=== PATIENT | male | born 1985 | race Caucasian/White ===

== ENCOUNTER 2019-04-01 13:41 | Emergency (ER) | payer MEDICAID ==
--- NOTE | 2019-04-01 15:04 | EDM.PDOC ---
ED HPI GENERAL MEDICAL PROBLEM - General Chief Complaint: General Stated Complaint: DIZZINESS LIGHT HEADED Time Seen by Provider: 04/01/19 14:56 Source of Information: Reports: Patient, Family History Limitations: Reports: No Limitations - History of Present Illness INITIAL COMMENTS - FREE TEXT/NARRATIVE: pt arrived stating that he feels like he has vertigo. He had a migraine yesterday. He took topromax and imitrex and had relieve. He got up feeling good today. He went in the shower and he felt like he was going to pass out in the shower. He does once again have a headache and would take the imitrex if he were at home. He has not vomited. Onset: Today, Sudden Duration: Hour(s): Location: Reports: Head Associated Symptoms: Reports: Headaches, Nausea/Vomiting, Weakness - Related Data Allergies Allergy/AdvReac Type Severity Reaction Status Date / Time No Known Allergies Allergy Verified 03/01/14 13:11 Home Meds: Home Meds NK [No Known Home Meds] 03/01/14 [History] Past Medical History Musculoskeletal History: Reports: Arthritis Neurological History: Reports: Migraines - Past Surgical History Musculoskeletal Surgical History: Reports: Arthroscopic Knee Social & Family History - Tobacco Use Smoking Status *Q: Current Every Day Smoker Years of Tobacco use: 20 Packs/Tins Daily: 0.5 - Caffeine Use Caffeine Use: Reports: Coffee, Soda - Recreational Drug Use Recreational Drug Use: No ED ROS GENERAL - Review of Systems Review Of Systems: See Below Constitutional: Reports: Weakness HEENT: Reports: No Symptoms, Vertigo Respiratory: Reports: No Symptoms Cardiovascular: Reports: No Symptoms Endocrine: Reports: No Symptoms GI/Abdominal: Reports: Nausea : Reports: No Symptoms Musculoskeletal: Reports: No Symptoms Skin: Reports: No Symptoms Neurological: Reports: Dizziness, Headache ED EXAM, GENERAL - Physical Exam Exam: See Below Free Text/Narrative:: pt arrived having vertigo and some spots in front of his eyes. He had a headache. He has not had the vertigo in the past. Exam Limited By: No Limitations General Appearance: Alert, Anxious, Moderate Distress, Other (pupils are equal and reactive. ) Ears: Normal TMs Nose: Normal Inspection Throat/Mouth: Normal Inspection Head: Atraumatic Neck: Normal Inspection Respiratory/Chest: No Respiratory Distress Cardiovascular: Regular Rate, Rhythm GI/Abdominal: Soft, Non-Tender (Male) Exam: Deferred Rectal (Males) Exam: Deferred Back Exam: Normal Inspection Extremities: Normal Inspection, Other (normal strength. ) Neurological: Alert, Oriented, Normal Cognition Psychiatric: Anxious Course - Vital Signs Last Recorded V/S: Last Vital Signs Temp 35.7 C 04/01/19 14:43 Pulse 64 04/01/19 14:43 Resp 16 04/01/19 14:43 BP 129/73 04/01/19 14:43 Pulse Ox 96 04/01/19 14:43 Orthostatic Blood Pressure [ 116/79 Standing] Orthostatic Blood Pressure [ 129/82 Sitting] Orthostatic Blood Pressure [ 126/83 Supine] - Orders/Labs/Meds Labs: Laboratory Tests 04/01/19 04/01/19 04/01/19 Range/Units 14:40 14:40 16:54 WBC 10.3 (4.5-11.0) K/uL RBC 5.56 (4.30-5.90) M/uL Hgb 15.5 H (12.0-15.0) g/dL Hct 46.3 (40.0-54.0) % MCV 83 (80-98) fL MCH 28 (27-31) pg MCHC 34 (32-36) % Plt Count 293 (150-400) K/uL Neut % (Auto) 71 H (36-66) % Lymph % (Auto) 21 L (24-44) % [place] % (Auto) 7 H (2-6) % Eos % (Auto) 2 (2-4) % Baso % (Auto) 0 (0-1) % Sodium 140 (140-148) mmol/L Potassium 3.7 (3.6-5.2) mmol/L Chloride 104 (100-108) mmol/L Carbon Dioxide 26 (21-32) mmol/L Anion Gap 9.6 (5.0-14.0) mmol/L BUN 12 (7-18) mg/dL Creatinine 1.1 (0.8-1.3) mg/dL Est Cr Clr Drug Dosing 88.47 mL/min Estimated GFR (MDRD) > 60 (>60) Glucose 89 (74-106) mg/dL Calcium 9.1 D (8.5-10.1) mg/dL Total Bilirubin 0.5 (0.2-1.0) mg/dL AST 15 (15-37) U/L ALT 20 (12-78) U/L Alkaline Phosphatase 77 (46-116) U/L Total Protein 7.0 (6.4-8.2) g/dL Albumin 3.8 (3.4-5.0) g/dL Globulin 3.2 (2.3-3.5) g/dL Albumin/Globulin Ratio 1.2 (1.2-2.2) Urine Color Yellow Urine Appearance Clear Urine pH 7.0 (4.5-8.0) Ur Specific [place] 1.015 (1.008-1.030) Urine Protein Negative (NEGATIVE) mg/dL Urine Glucose (UA) Normal (NEGATIVE) mg/dL Urine Ketones Negative (NEGATIVE) mg/dL Urine Occult Blood Negative (NEGATIVE) Urine Nitrite Negative (NEGAITVE) Urine Bilirubin Small (NEGATIVE) Urine Urobilinogen 1 (NORMAL) mg/dL Ur Leukocyte Esterase Negative (NEGATIVE) Urine RBC 0-5 (0-5) Urine WBC 0-5 (0-5) Ur Epithelial Cells Rare Amorphous Sediment Not seen Urine Bacteria Rare Urine Mucus Not seen Meds: Medications Discontinued Medications Generic Name Dose Route Start Last Admin Trade Name Freq PRN Reason Stop Dose Admin Sodium Chloride 1,000 mls @ 999 mls/hr 04/01/19 15:15 04/01/19 16:38 Normal Saline IV 999 mls/hr ASDIRECTED JOSÉ MIGUEL Administration Meclizine HCl 25 mg 04/01/19 15:07 04/01/19 16:42 Antivert PO 04/01/19 15:08 25 mg ONETIME ONE Administration Ondansetron HCl 4 mg 04/01/19 15:07 04/01/19 16:39 Zofran IVPUSH 04/01/19 15:08 4 mg ONETIME ONE Administration Sumatriptan Succinate 6 mg 04/01/19 16:16 04/01/19 16:25 Imitrex SUBCUT 04/01/19 16:17 6 mg ONETIME ONE Administration - Re-Assessments/Exams Free Text/Narrative Re-Assessment/Exam: 04/01/19 16:47 pt had a cat scan of the head which was normal. He was given zoforan 4 mg iv, antivert 25 mg qid for the next 2 days, He was given imitrex 6mg subq and his head ache is better. He will be given the fluid,. 04/01/19 16:47 Departure - Departure Time of Disposition: 17:45 Disposition: Home, Self-Care 01 Condition: Fair Clinical Impression: Vertigo, Inner ear dysfunction, Migraine - Discharge Information Instructions: Migraine Headache, [id number], Vertigo, [id number] Referrals: Vishnu Lai MD [Primary Care Provider] - Forms: ED Department Discharge Care Plan Goals: continue same meds, antivert 25 qid for vertigo push fluids.
[2019-04-01] MEDS ORDERED: Meclizine 25 MG Tab PO ONE (15:07)
[2019-04-01] MEDS ORDERED: Ondansetron 4 MG/2 ML SDV IVPUSH ONE (15:07)
[2019-04-01] MEDS ORDERED: Sodium Chloride 0.9% 1,000 ML IV SCH (15:15)
--- NOTE | 2019-04-01 15:55 | CRLCT ---
INDICATION: Vertigo and headache. COMPARISON: None available. TECHNIQUE: CT examination of the head was performed with 3 mm thick axial sections without intravenous contrast. Images were obtained from the vertex of the skull through the skull base, and I examined the images with the brain and bone windows. Please note that all CT scans at this facility use dose modulation, iterative reconstruction, and/or weight-based dosing when appropriate to reduce radiation dose to as low as reasonably achievable. FINDINGS: : The brain is normal in appearance for the patient`s age on today`s study, with no sign of mass lesion, mass effect, hemorrhage, or edema. The ventricles and sulci are normal in appearance for the patient`s age. The visualized portions of the orbits are normal in appearance. The visualized portions of the paranasal sinuses and mastoids are clear. The osseous structures are normal in their appearance with no sign of abnormality in the skull base or calvarium. IMPRESSION: Normal noncontrast CT of the head for the patient`s age. Nothing seen to correlate with a history of vertigo or headache. Please note that all CT scans at this facility use dose modulation, iterative reconstruction, and/or weight-based dosing when appropriate to reduce radiation dose to as low as reasonably achievable. Dictated by Esau Gracia MD @ Apr 01 2019 3:52PM Signed by Dr. Esau Gracia @ Apr 01 2019 3:53PM
[2019-04-01] MEDS ORDERED: SUMAtriptan 6 MG/0.5 ML SDV SUBCUT ONE (16:16)
== END 2019-04-01 17:41 | disposition home or self-care (01) ==
LOC: JP.ED 13:41
DX: G43.909 Migraine, unspecified, not intractable, without status migrainosus (principal); H83.2X9 Labyrinthine dysfunction, unspecified ear; M19.90 Unspecified osteoarthritis, unspecified site; F17.210 Nicotine dependence, cigarettes, uncomplicated
CPT/HCPCS: 36415; 70450; 80053; 81001; 85025; 96361; 96372; 96374; 99284; A9270; J2405; J3030; J7030

== ENCOUNTER 2019-08-11 23:12 | Emergency (ER) | payer MEDICAID ==
[2019-08-11] MEDS ORDERED: Ketorolac 60 MG/2 ML SDV IM ONE (23:44)
--- NOTE | 2019-08-11 23:46 | EDM.PDOC ---
ED HPI GENERAL MEDICAL PROBLEM - General Chief Complaint: Lower Extremity Injury/Pain Stated Complaint: HURT HIP Time Seen by Provider: 08/11/19 23:41 Source of Information: Reports: Patient, Family, RN Notes Reviewed History Limitations: Reports: No Limitations - History of Present Illness INITIAL COMMENTS - FREE TEXT/NARRATIVE: 34-year-old gentleman presents emergency department today complaint of right hip pain, he has a history of left hip dislocation he's never had troubles with the right hip but he feels like he might have a partial dislocation because of the pain that is experiencing, was able to ambulate into the emergency department hip Pain Score (Numeric/FACES): 8 - Related Data Allergies Allergy/AdvReac Type Severity Reaction Status Date / Time No Known Allergies Allergy Verified 08/11/19 23:30 Home Meds: Home Meds Cholecalciferol (Vitamin D3) [Vitamin D] 1 tab PO DAILY 08/11/19 [History] Nabumetone [Relafen] 500 mg PO BID 08/11/19 [History] SUMAtriptan succinate [Sumatriptan Succinate] 25 mg PO ASDIRECTED 08/11/19 [ History] Topiramate 100 mg PO BID 08/11/19 [History] tiZANidine [Zanaflex] 4 mg PO BID 08/11/19 [History] Past Medical History Musculoskeletal History: Reports: Arthritis Neurological History: Reports: Migraines - Past Surgical History GI Surgical History: Reports: Cholecystectomy Musculoskeletal Surgical History: Reports: Arthroscopic Knee Social & Family History - Tobacco Use Smoking Status *Q: Current Every Day Smoker Years of Tobacco use: 20 Packs/Tins Daily: 0.5 - Caffeine Use Caffeine Use: Reports: Coffee, Energy Drinks, Soda - Recreational Drug Use Recreational Drug Use: No Review of Systems - Review of Systems Review Of Systems: See Below Musculoskeletal: Reports: Joint Pain (Hip pain) ED EXAM, GENERAL - Physical Exam Exam: See Below Free Text/Narrative:: Examination the right hip he is point tender over the greater trochanter will not tolerate any flexion and extension or rotation hip Exam Limited By: No Limitations General Appearance: Alert, WD/WN, No Apparent Distress Course - Vital Signs Last Recorded V/S: Last Vital Signs Temp 97.8 F 08/11/19 23:28 Pulse 73 08/11/19 23:28 Resp 20 09/29/19 23:28 BP 114/72 08/11/19 23:28 Pulse Ox 95 08/11/19 23:28 - Orders/Labs/Meds Meds: Medications Discontinued Medications Generic Name Dose Route Start Last Admin Trade Name Mesfin PRN Reason Stop Dose Admin Ketorolac Tromethamine 60 mg 08/11/19 23:44 08/11/19 23:55 Toradol IM 08/11/19 23:45 60 mg ONETIME ONE Administration Departure - Departure Time of Disposition: 00:41 Disposition: Home, Self-Care 01 Condition: Fair Clinical Impression: Right hip pain - Discharge Information Referrals: Vishnu Lai MD [Primary Care Provider] - Forms: ED Department Discharge Additional Instructions: Use Tylenol or Motrin as needed for pain control, Please followup with your primary care provider in 3-5 days if not better, please call return to the emergency department with worsening of symptoms. - Assessment/Plan Plan: Assessment Acuity = acute Site and laterality = right hip pain Etiology = unknown etiology Manifestations = none Location of injury = Home Lab values = x-ray shows no acute process Plan He had some relief from the Toradol provided he's can use Tylenol or Motrin as needed for pain control follow-up primary care in 3-5 days for reevaluation This note was dictated using [employer] voice recognition software please call with any questions on syntax or grammar.
--- NOTE | 2019-08-12 00:18 | CRLCR ---
Indication: Hip pain Technique: Right hip 2 views Comparison: None Findings: Bones: Alignment is normal. No fractures or bone lesions. Joint spaces: Joint spaces are preserved. No degenerative changes. Soft tissues: Unremarkable. Impression: Unremarkable right hip. Dictated by Connor Jacome MD @ Aug 12 2019 12:15AM Signed by Dr. Connor Jacome @ Aug 12 2019 12:16AM
== END 2019-08-12 01:16 | disposition home or self-care (01) ==
LOC: JP.ED 23:12
DX: M25.551 Pain in right hip (principal); G43.909 Migraine, unspecified, not intractable, without status migrainosus; F17.210 Nicotine dependence, cigarettes, uncomplicated; Z79.899 Other long term (current) drug therapy
CPT/HCPCS: 73502; 96372; 99283; J1885

== ENCOUNTER 2019-09-10 23:17 | Emergency (ER) | payer MEDICAID ==
--- NOTE | 2019-09-10 23:54 | EDM.PDOC ---
ED HPI GENERAL MEDICAL PROBLEM - General Chief Complaint: Upper Extremity Injury/Pain Stated Complaint: RIGHT THUMB PAIN Time Seen by Provider: 09/10/19 23:40 Source of Information: Reports: Patient, Old Records History Limitations: Reports: No Limitations - History of Present Illness INITIAL COMMENTS - FREE TEXT/NARRATIVE: 34 yo male was picking up his 11 mos child and heard and felt a pop in the dorsum of his R thumb over the MC joint. 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 Onset: Today, Sudden Onset Date: 09/10/19 Onset Time: 21:00 Duration: Minutes:, Constant Location: Reports: Upper Extremity, Right Quality: Reports: Ache Severity: Mild Improves with: Reports: Rest Worsens with: Reports: Movement Context: Reports: Trauma Associated Symptoms: Reports: No Other Symptoms Treatments MOTHER REPAIRER: Reports: Other (see below) (ice) Right Finger-Thumb Pain Score (Numeric/FACES): 4 - Related Data Allergies Allergy/AdvReac Type Severity Reaction Status Date / Time No Known Allergies Allergy Verified 09/10/19 23:34 Home Meds: Home Meds Cholecalciferol (Vitamin D3) [Vitamin D] 1 tab PO DAILY 08/11/19 [History] Nabumetone [Relafen] 500 mg PO BID 08/11/19 [History] SUMAtriptan succinate [Sumatriptan Succinate] 25 mg PO ASDIRECTED 08/11/19 [ History] Topiramate 100 mg PO BID 08/11/19 [History] tiZANidine [Zanaflex] 4 mg PO BID 08/11/19 [History] Past Medical History HEENT History: Reports: Impaired Vision Respiratory History: Reports: Asthma Musculoskeletal History: Reports: Arthritis Neurological History: Reports: Migraines - Past Surgical History GI Surgical History: Reports: Cholecystectomy Musculoskeletal Surgical History: Reports: Arthroscopic Knee Social & Family History - Tobacco Use Smoking Status *Q: Current Every Day Smoker Years of Tobacco use: 17 Packs/Tins Daily: 0.5 - Caffeine Use Caffeine Use: Reports: Coffee, Energy Drinks, Soda - Recreational Drug Use Recreational Drug Use: No Review of Systems - Review of Systems Review Of Systems: ROS reveals no pertinent complaints other than HPI. Constitutional: Reports: No Symptoms Musculoskeletal: Reports: Hand Pain (R thumb) Skin: Reports: No Symptoms Neurological: Reports: No Symptoms ED EXAM, GENERAL - Physical Exam Exam: See Below Exam Limited By: No Limitations General Appearance: Alert, WD/WN, No Apparent Distress Extremities: Normal Inspection, Normal Range of Motion, No Pedal Edema, Other ( collateral ligaments intact. Full ROM. Slightly tender over the dorsum of the R thumb MC jt. ). No: Non-Tender, Pedal Edema, Joint Swelling, Limited Range of Motion, Increased Warmth, Redness Course - Vital Signs Last Recorded V/S: Last Vital Signs Temp 36.6 C 09/10/19 23:40 Pulse 69 09/10/19 23:40 Resp 14 09/10/19 23:40 BP 138/79 09/10/19 23:40 Pulse Ox 96 09/10/19 23:40 - Orders/Labs/Meds Orders: Active Orders 24 hr Category Date Time Status Fingers Thumb Lt FA [CR] Stat Exams 09/10/19 23:45 Stop Req Departure - Departure Time of Disposition: 23:53 Disposition: Home, Self-Care 01 Condition: Good Clinical Impression: Thumb tenderness - Discharge Information *PRESCRIPTION DRUG MONITORING PROGRAM REVIEWED*: No *COPY OF PRESCRIPTION DRUG MONITORING REPORT IN PATIENT ERNA: No Referrals: Vishnu Lai MD [Primary Care Provider] - Additional Instructions: Take ibuprofen 600 mg every 6 hrs with food. Rest the R thumb for the next several days. If not better by Monday or Monday check with your primary care provider. Consider icing area for 15 minutes 2-3 times per day. - My Orders Last 24 Hours: My Active Orders 09/10/19 23:45 Fingers Thumb Lt FA [CR] Stat - Assessment/Plan Last 24 Hours: My Active Orders 09/10/19 23:45 Fingers Thumb Lt FA [CR] Stat
== END 2019-09-11 00:06 | disposition home or self-care (01) ==
LOC: JP.ED 23:17
DX: M79.644 Pain in right finger(s) (principal); J45.909 Unspecified asthma, uncomplicated; F17.210 Nicotine dependence, cigarettes, uncomplicated; X50.9XXA Other and unspecified overexertion or strenuous movements or postures, initial encounter
CPT/HCPCS: 99283

== ENCOUNTER 2019-09-20 18:01 | Emergency (ER) | payer MEDICAID ==
[2019-09-20] MEDS ORDERED: Ketorolac 30 MG/ML SDV IVPUSH ONE (19:02)
[2019-09-20] MEDS ORDERED: Sodium Chloride 0.9% 10 ML Syringe FLUSH PRN (19:03)
--- NOTE | 2019-09-20 19:11 | EDM.PDOC ---
ED HPI GENERAL MEDICAL PROBLEM - General Stated Complaint: PAIN IN CHEST Time Seen by Provider: 09/20/19 18:51 Source of Information: Reports: Patient History Limitations: Reports: No Limitations - History of Present Illness INITIAL COMMENTS - FREE TEXT/NARRATIVE: Sudden onset RUQ 20 minutes prior to arrival. Pain was quite severe, 7/10, when it began with some nausea but no vomiting. He underwent a cholecystectomy 18 months ago because of similar pain such as this as well as postprandial diarrhea /fatty food intolerance. He is continued to have some postprandial related soft stools but nothing like the pain he experienced today. He didn't take anything for it. He actually drove himself here because his roommate's unable to drive because of medical procedure earlier today. He has nausea but no vomiting. His position of comfort is lying supine with his right arm up over his head. If his arm is at his side or if he is standing and walking, pain goes up to 8-9/10. Onset: Today, Sudden Location: Reports: Abdomen Quality: Reports: Burning, Dull Severity: Moderate Improves with: Reports: None Worsens with: Reports: None Associated Symptoms: Reports: No Other Symptoms - Related Data Allergies Allergy/AdvReac Type Severity Reaction Status Date / Time No Known Allergies Allergy Verified 09/20/19 19:14 Home Meds: Home Meds Cholecalciferol (Vitamin D3) [Vitamin D] 1 tab PO DAILY 08/11/19 [History] Nabumetone [Relafen] 500 mg PO BID 08/11/19 [History] SUMAtriptan succinate [Sumatriptan Succinate] 25 mg PO ASDIRECTED 08/11/19 [ History] Topiramate 100 mg PO BID 08/11/19 [History] tiZANidine [Zanaflex] 4 mg PO BID 08/11/19 [History] Albuterol [Ventolin HFA] 1 puff INH Q4H PRN 09/11/19 [History] Past Medical History HEENT History: Reports: Impaired Vision Respiratory History: Reports: Asthma Musculoskeletal History: Reports: Arthritis Neurological History: Reports: Migraines - Past Surgical History GI Surgical History: Reports: Cholecystectomy Musculoskeletal Surgical History: Reports: Arthroscopic Knee Social & Family History - Caffeine Use Caffeine Use: Reports: Coffee, Energy Drinks, Soda ED ROS GENERAL - Review of Systems Review Of Systems: See Below Constitutional: Reports: No Symptoms Respiratory: Reports: No Symptoms Cardiovascular: Reports: No Symptoms GI/Abdominal: Reports: Abdominal Pain, Nausea. Denies: Black Stool, Vomiting : Reports: No Symptoms Musculoskeletal: Reports: No Symptoms ED EXAM, GI/ABD - Physical Exam Exam: See Below Exam Limited By: No Limitations General Appearance: Alert, Moderate Distress Respiratory/Chest: No Respiratory Distress Cardiovascular: Regular Rate, Rhythm GI/Abdominal Exam: Soft, Tender (Tender throughout the right upper quadrant on palpation as well as the right periumbilical region.) Back Exam: Normal Inspection Course - Vital Signs Last Recorded V/S: Last Vital Signs Temp 36.1 C 09/20/19 18:46 Pulse 63 09/20/19 18:46 Resp 18 09/20/19 18:46 BP 116/68 09/20/19 18:46 Pulse Ox 96 09/20/19 18:46 - Orders/Labs/Meds Orders: Active Orders 24 hr Category Date Time Status Saline Lock Insert [OM.PC] Routine Oth 09/20/19 19:03 Ordered Labs: Laboratory Tests 09/20/19 09/20/19 Range/Units 19:18 19:18 WBC 8.1 (4.5-11.0) K/uL RBC 5.18 (4.30-5.90) M/uL Hgb 14.2 (12.0-15.0) g/dL Hct 43.9 (40.0-54.0) % MCV 85 (80-98) fL MCH 27 (27-31) pg MCHC 32 (32-36) % Plt Count 305 (150-400) K/uL Neut % (Auto) 62 (36-66) % Lymph % (Auto) 27 (24-44) % [place] % (Auto) 8 H (2-6) % Eos % (Auto) 3 (2-4) % Baso % (Auto) 0 (0-1) % Sodium 144 (140-148) mmol/L Potassium 3.8 (3.6-5.2) mmol/L Chloride 109 H (100-108) mmol/L Carbon Dioxide 25 (21-32) mmol/L Anion Gap 13.8 (5.0-14.0) mmol/L BUN 17 (7-18) mg/dL Creatinine 1.0 (0.8-1.3) mg/dL Est Cr Clr Drug Dosing 96.40 mL/min Estimated GFR (MDRD) > 60 (>60) Glucose 103 (74-106) mg/dL Calcium 8.6 (8.5-10.1) mg/dL Total Bilirubin 0.2 D (0.2-1.0) mg/dL AST 12 L (15-37) U/L ALT 20 (12-78) U/L Alkaline Phosphatase 72 (46-116) U/L Total Protein 6.6 (6.4-8.2) g/dL Albumin 3.6 (3.4-5.0) g/dL Globulin 3.0 (2.3-3.5) g/dL Albumin/Globulin Ratio 1.2 (1.2-2.2) Lipase 93 (73-393) U/L Meds: Medications Discontinued Medications Generic Name Dose Route Start Last Admin Trade Name Freq PRN Reason Stop Dose Admin Sodium Chloride 1,000 mls @ 500 mls/hr 09/20/19 19:15 09/20/19 19:29 Normal Saline IV 500 mls/hr ASDIRECTED JOSÉ MIGUEL Administration Sodium Chloride 100 mls @ 3 mls/sec 09/20/19 19:30 09/20/19 19:55 Normal Saline IV 3 mls/sec ASDIRECTED JOSÉ MIGUEL Administration Iopamidol 100 ml 09/20/19 19:30 09/20/19 19:55 Isovue-300 (61%) IV 100 ml . DIRECTED JOSÉ MIGUEL Administration Ketorolac Tromethamine 30 mg 09/20/19 19:02 09/20/19 19:29 Toradol IVPUSH 09/20/19 19:03 30 mg ONETIME ONE Administration Sodium Chloride 10 ml 09/20/19 19:03 09/20/19 19:30 Saline Flush FLUSH 10 ml ASDIRECTED PRN Administration Keep Vein Open Sodium Chloride 10 ml 09/20/19 19:27 09/20/19 19:55 Saline Flush FLUSH 09/20/19 19:28 10 ml ONETIME ONE Administration - Re-Assessments/Exams Free Text/Narrative Re-Assessment/Exam: 09/20/19 19:11 Patient will be given Toradol 30 mg IV. Given nature and location of pain, will obtain CT scan. 09/20/19 22:45 I returned later and reviewed test results with the patient. Labs are unremarkable. The Toradol helped his pain somewhat. CT scan results show no evidence of anything alarming. He does have significant amount of stool within his system but in talking with him, he states that he is the usual case. There are no abnormalities identified in his cholecystectomy. I discussed that he may have an element of constipation as well as an element of viral gastroenteritis. Nothing alarming is seen tonight and his vital signs have also been stable. I recommended using usual medication for pain, liquid antacids as needed, returning to ER if feeling worse in anyway. He periodically has done colon cleaned out regimens and if he does not feel any different in the next 12-24 hours, he should consider doing that. Reasons to return to emergency department reviewed. 09/20/19 22:45 Departure - Departure Time of Disposition: 21:29 Disposition: Home, Self-Care 01 Condition: Good Clinical Impression: Abdominal pain, Gastroenteritis - Discharge Information *PRESCRIPTION DRUG MONITORING PROGRAM REVIEWED*: Not Applicable *COPY OF PRESCRIPTION DRUG MONITORING REPORT IN PATIENT ERNA: Not Applicable Instructions: Abdominal Pain, Adult Referrals: Vishnu Lai MD [Primary Care Provider] - Forms: ED Department Discharge Additional Instructions: Avoid dairy products until pain improves. He could try liquid antacid of choice taking 3 or so tablespoons at a time as needed for pain. Depending on stool pattern at home, you may need to do a bowel cleanout at home as discussed. If things are not improving after 24 hours or so or if feeling worse in anyway, return to emergency department. - My Orders Last 24 Hours: My Active Orders 09/20/19 19:03 Saline Lock Insert [OM.PC] Routine - Assessment/Plan Last 24 Hours: My Active Orders 09/20/19 19:03 Saline Lock Insert [OM.PC] Routine
[2019-09-20] MEDS ORDERED: Sodium Chloride 0.9% 1,000 ML IV SCH (19:15)
[2019-09-20] MEDS ORDERED: Sodium Chloride 0.9% 10 ML Syringe FLUSH ONE (19:27)
[2019-09-20] MEDS ORDERED: Iopamidol 612 MG/ML 100 ML Bottle IV SCH (19:30)
[2019-09-20] MEDS ORDERED: Sodium Chloride 0.9% 100 ML IV SCH (19:30)
--- NOTE | 2019-09-20 20:37 | CRLCT ---
INDICATION: Right upper quadrant pain status post cholecystectomy TECHNIQUE: CT abdomen and pelvis acquired with IV contrast. COMPARISON: None FINDINGS: Lower chest: Unremarkable. Liver: Unremarkable. Spleen: Unremarkable. Pancreas: Unremarkable. Gallbladder and bile ducts: Unremarkable. Kidneys: Unremarkable. Adrenal glands: Unremarkable. GI tract: Diffuse colonic fecal retention. Appendix is normal. Vascular structures: Unremarkable. Lymph nodes: Unremarkable. Miscellaneous: Unremarkable. No free air or significant free fluid. Pelvic Organs: Unremarkable. Bones: Unremarkable for age. IMPRESSION: Status post cholecystectomy. Normal appearing common bile duct. No intrahepatic biliary duct dilatation. No abnormality is identified in the gallbladder fossa. Diffuse colonic fecal retention. Dictated by Tee Vega MD @ 09/20/2019 8:35:07 PM Please note that all CT scans at this facility use dose modulation, iterative reconstruction, and/or weight-based dosing when appropriate to reduce radiation dose to as low as reasonably achievable. Dictated by: Tee Vega MD @ 09/20/2019 20:35:16 (Electronically Signed)
== END 2019-09-20 21:40 | disposition home or self-care (01) ==
LOC: JP.ED 18:01
DX: K52.9 Noninfective gastroenteritis and colitis, unspecified (principal); J45.909 Unspecified asthma, uncomplicated
CPT/HCPCS: 36415; 74177; 80053; 83690; 85025; 96361; 96374; 99284; J1885; J7030; Q9967

== ENCOUNTER 2019-12-07 22:37 | Emergency (ER) | payer MEDICAID ==
[2019-12-07] MEDS ORDERED: Ondansetron 4 MG/2 ML SDV IVPUSH ONE (23:00)
[2019-12-07] MEDS ORDERED: Ondansetron 4 MG Tab.DIS PO ONE (23:47)
--- NOTE | 2019-12-07 23:52 | EDM.PDOC ---
ED HPI GENERAL MEDICAL PROBLEM - General Chief Complaint: Neurological Problem Stated Complaint: [facility] Time Seen by Provider: 12/07/19 23:40 Source of Information: Reports: Patient, RN Notes Reviewed History Limitations: Reports: No Limitations - History of Present Illness INITIAL COMMENTS - FREE TEXT/NARRATIVE: 34-year-old gentleman presents emergency department today via EMS services. He admits to consumption of cannabis he states he has not smoked in over 5years immediately after smoking he became very lightheaded he went down to 1 knee the next thing he remembers laying on the floor he remembers being able to see and hear but he felt he could not move. EMS services were called transported to the emergency department for evaluation on arrival he did have one large bout of emesis. At this time he feels he is back to his normal state he does have chronic back pain which is normal for him no nausea at this time he is complaining of dry mouth that chronic lower back pain Pain Score (Numeric/FACES): 2 - Related Data Allergies Allergy/AdvReac Type Severity Reaction Status Date / Time No Known Allergies Allergy Verified 12/07/19 22:39 Home Meds: Home Meds Cholecalciferol (Vitamin D3) [Vitamin D] 1 tab PO DAILY 08/11/19 [History] Nabumetone [Relafen] 500 mg PO BID 08/11/19 [History] SUMAtriptan succinate [Sumatriptan Succinate] 25 mg PO ASDIRECTED PRN 08/11/19 [ History] Topiramate 100 mg PO BID 08/11/19 [History] tiZANidine [Zanaflex] 4 mg PO BID 08/11/19 [History] Albuterol [Ventolin HFA] 1 puff INH Q4H PRN 09/11/19 [History] Past Medical History HEENT History: Reports: Impaired Vision Respiratory History: Reports: Asthma Musculoskeletal History: Reports: Arthritis Neurological History: Reports: Migraines - Infectious Disease History Infectious Disease History: Reports: Chicken Pox - Past Surgical History GI Surgical History: Reports: Cholecystectomy Musculoskeletal Surgical History: Reports: Arthroscopic Knee Social & Family History - Tobacco Use Smoking Status *Q: Current Every Day Smoker Years of Tobacco use: 20 Packs/Tins Daily: 0.5 Second Hand Smoke Exposure: Yes - Caffeine Use Caffeine Use: Reports: Coffee - Recreational Drug Use Recreational Drug Use: Yes Drug Use in Last 12 Months: Yes Recreational Drug Type: Reports: Marijuana/Hashish Recreational Drug Use Frequency: Rarely ED ROS GENERAL - Review of Systems Review Of Systems: See Below Constitutional: Reports: No Symptoms HEENT: Reports: No Symptoms Respiratory: Reports: No Symptoms Cardiovascular: Reports: Syncope GI/Abdominal: Reports: Nausea, Vomiting Musculoskeletal: Reports: No Symptoms ED EXAM, GENERAL - Physical Exam Exam: See Below Exam Limited By: No Limitations General Appearance: Alert, WD/WN, No Apparent Distress Respiratory/Chest: No Respiratory Distress, Lungs Clear, Normal Breath Sounds, No Accessory Muscle Use, Chest Non-Tender Cardiovascular: Regular Rate, Rhythm, No Murmur GI/Abdominal: Soft, Non-Tender Course - Vital Signs Last Recorded V/S: Last Vital Signs Temp 96.4 F 12/07/19 22:49 Pulse 107 H 12/07/19 22:50 Resp 17 12/07/19 22:50 BP 111/56 L 12/07/19 22:50 Pulse Ox 95 12/07/19 22:50 - Orders/Labs/Meds Labs: Laboratory Tests 12/07/19 12/07/19 12/07/19 Range/Units 22:46 22:48 22:48 WBC 16.1 H (4.5-11.0) K/uL RBC 5.37 (4.30-5.90) M/uL Hgb 15.0 (12.0-15.0) g/dL Hct 44.7 (40.0-54.0) % MCV 83 (80-98) fL MCH 28 (27-31) pg MCHC 34 (32-36) % Plt Count 309 (150-400) K/uL Neut % (Auto) 59 (36-66) % Lymph % (Auto) 32 (24-44) % [place] % (Auto) 7 H (2-6) % Eos % (Auto) 2 (2-4) % Baso % (Auto) 0 (0-1) % Sodium 143 (140-148) mmol/L Potassium 2.8 L* (3.6-5.2) mmol/L Chloride 106 (100-108) mmol/L Carbon Dioxide 20 L (21-32) mmol/L Anion Gap 19.8 H (5.0-14.0) mmol/L BUN 22 H (7-18) mg/dL Creatinine 1.3 (0.8-1.3) mg/dL Est Cr Clr Drug Dosing 74.15 mL/min Estimated GFR (MDRD) > 60 (>60) Glucose 135 H (74-106) mg/dL Calcium 8.1 L (8.5-10.1) mg/dL Total Bilirubin 0.5 D (0.2-1.0) mg/dL AST 14 L (15-37) U/L ALT 22 (12-78) U/L Alkaline Phosphatase 64 (46-116) U/L Total Protein 6.9 (6.4-8.2) g/dL Albumin 3.9 (3.4-5.0) g/dL Globulin 3.0 (2.3-3.5) g/dL Albumin/Globulin Ratio 1.3 (1.2-2.2) Urine Color (YELLOW) Urine Appearance (CLEAR) Urine pH (5.0-8.0) Ur Specific [place] (1.008-1.030) Urine Protein (NEGATIVE) mg/dL Urine Glucose (UA) (NEGATIVE) mg/dL Urine Ketones (NEGATIVE) mg/dL Urine Occult Blood (NEGATIVE) Urine Nitrite (NEGATIVE) Urine Bilirubin (NEGATIVE) Urine Urobilinogen (0.2-1.0) EU/dL Ur Leukocyte Esterase (NEGATIVE) Urine RBC (0-5) Urine WBC (0-5) Ur Epithelial Cells Amorphous Sediment Urine Bacteria Urine Mucus Urine Opiates Screen (NEGATIVE) Ur Oxycodone Screen (NEGATIVE) Urine Methadone Screen (NEGATIVE) Ur Propoxyphene Screen (NEGATIVE) Ur Barbiturates Screen (NEGATIVE) Ur Tricyclics Screen (NEGATIVE) Ur Phencyclidine Scrn (NEGATIVE) Ur Amphetamine Screen (NEGATIVE) U Methamphetamines Scrn (NEGATIVE) Urine MDMA Screen (NEGATIVE) U Benzodiazepines Scrn (NEGATIVE) U Cocaine Metab Screen (NEGATIVE) U Marijuana (THC) Screen (NEGATIVE) Ethyl Alcohol 3 mg/dL 12/08/19 12/08/19 Range/Units 02:47 02:47 WBC (4.5-11.0) K/uL RBC (4.30-5.90) M/uL Hgb (12.0-15.0) g/dL Hct (40.0-54.0) % MCV (80-98) fL MCH (27-31) pg MCHC (32-36) % Plt Count (150-400) K/uL Neut % (Auto) (36-66) % Lymph % (Auto) (24-44) % [place] % (Auto) (2-6) % Eos % (Auto) (2-4) % Baso % (Auto) (0-1) % Sodium (140-148) mmol/L Potassium (3.6-5.2) mmol/L Chloride (100-108) mmol/L Carbon Dioxide (21-32) mmol/L Anion Gap (5.0-14.0) mmol/L BUN (7-18) mg/dL Creatinine (0.8-1.3) mg/dL Est Cr Clr Drug Dosing mL/min Estimated GFR (MDRD) (>60) Glucose (74-106) mg/dL Calcium (8.5-10.1) mg/dL Total Bilirubin (0.2-1.0) mg/dL AST (15-37) U/L ALT (12-78) U/L Alkaline Phosphatase (46-116) U/L Total Protein (6.4-8.2) g/dL Albumin (3.4-5.0) g/dL Globulin (2.3-3.5) g/dL Albumin/Globulin Ratio (1.2-2.2) Urine Color Yellow (YELLOW) Urine Appearance Clear (CLEAR) Urine pH 7.0 (5.0-8.0) Ur Specific [place] 1.020 (1.008-1.030) Urine Protein Negative (NEGATIVE) mg/dL Urine Glucose (UA) Negative (NEGATIVE) mg/dL Urine Ketones 15 H (NEGATIVE) mg/dL Urine Occult Blood Negative (NEGATIVE) Urine Nitrite Negative (NEGATIVE) Urine Bilirubin Negative (NEGATIVE) Urine Urobilinogen 0.2 (0.2-1.0) EU/dL Ur Leukocyte Esterase Negative (NEGATIVE) Urine RBC 0-5 (0-5) Urine WBC 0-5 (0-5) Ur Epithelial Cells Rare Amorphous Sediment Not seen Urine Bacteria Not seen Urine Mucus Moderate Urine Opiates Screen Negative (NEGATIVE) Ur Oxycodone Screen Negative (NEGATIVE) Urine Methadone Screen Negative (NEGATIVE) Ur Propoxyphene Screen Negative (NEGATIVE) Ur Barbiturates Screen Negative (NEGATIVE) Ur Tricyclics Screen Negative (NEGATIVE) Ur Phencyclidine Scrn Negative (NEGATIVE) Ur Amphetamine Screen Negative (NEGATIVE) U Methamphetamines Scrn Negative (NEGATIVE) Urine MDMA Screen Negative (NEGATIVE) U Benzodiazepines Scrn Negative (NEGATIVE) U Cocaine Metab Screen Negative (NEGATIVE) U Marijuana (THC) Screen Presumptive positive H (NEGATIVE) Ethyl Alcohol mg/dL Meds: Medications Discontinued Medications Generic Name Dose Route Start Last Admin Trade Name Mesfin PRN Reason Stop Dose Admin Lactated Ringer's 1,000 mls @ 999 mls/hr 12/07/19 23:54 12/08/19 00:16 Ringers, Lactated IV 12/08/19 00:54 999 mls/hr BOLUS ONE Administration Potassium Chloride 20 meq/ 100 mls @ 50 mls/hr 12/07/19 23:54 12/08/19 00:13 Premix IV 12/08/19 01:53 50 mls/hr ONETIME ONE Administration Potassium Chloride Confirm 12/08/19 00:05 Kcl 20 Meq In Water 100 Ml Administered 12/08/19 00:06 Dose 100 mls @ as directed .ROUTE .STK-MED ONE Lidocaine HCl 2 ml 12/07/19 23:56 12/08/19 00:15 Xylocaine-Mpf 1% INJECT 12/07/19 23:57 2 ml ONETIME ONE Administration Lidocaine HCl Confirm 12/08/19 00:04 Xylocaine-Mpf 1% Administered 12/08/19 00:05 Dose 5 ml .ROUTE .STK-MED ONE Ondansetron HCl 4 mg 12/07/19 23:00 12/07/19 23:11 Zofran IVPUSH 12/07/19 23:01 4 mg ONETIME ONE Administration Ondansetron HCl 4 mg 12/07/19 23:47 12/08/19 00:16 Zofran Odt PO 12/07/19 23:48 4 mg ONETIME ONE Administration Ondansetron HCl Confirm 12/08/19 00:04 Zofran Odt Administered 12/08/19 00:05 Dose 4 mg .ROUTE .STK-MED ONE Potassium Chloride 40 meq 12/07/19 23:54 12/08/19 00:16 Klor-Con M20 PO 12/07/19 23:55 40 meq ONETIME ONE Administration Potassium Chloride Confirm 12/08/19 00:04 Klor-Con M20 Administered 12/08/19 00:05 Dose 40 meq .ROUTE .STK-MED ONE Departure - Departure Time of Disposition: 03:09 Disposition: Home, Self-Care 01 Condition: Fair Clinical Impression: Cannabis intoxication Qualifiers: Complication of substance-induced condition: uncomplicated Qualified Code(s): F12.920 - Cannabis use, unspecified with intoxication, uncomplicated - Discharge Information Instructions: Cannabis Use Disorder Referrals: PCP,None [Primary Care Provider] - Forms: ED Department Discharge Additional Instructions: Refrain from cannabis use, please followup with your primary care provider in 3 -5 days if not better, please call return to the emergency department with worsening of symptoms. Sepsis Event Note - Evaluation Sepsis Screening Result: No Definite Risk - Focused Exam Vital Signs: Vital Signs Temp Pulse Resp BP Pulse Ox 12/07/19 22:50 107 H 17 111/56 L 95 12/07/19 22:49 96.4 F 84 22 H 109/60 96 12/07/19 22:47 96.4 F 84 22 H 109/60 96 Date Exam was Performed: 12/08/19 Time Exam was Performed: 03:08 - Assessment/Plan Plan: Assessment Acuity = acute Site and laterality = cannabis intoxication Etiology = cannabis Manifestations = near syncope with nausea and vomiting Location of injury = Home Lab values = WBC elevated 16.1 consistent with leukocytosis potassium low at 2.8 consistent hypokalemia, urine drug screen positive for cannabis alcohol was negative Plan Good improvement with 1 L fluids potassium was replaced with 20 mEq IV and 40 mEq p.o. however follow-up with his primary care in the next 3 to 5 days for reevaluation refrain from cannabis use This note was dictated using [employer] voice recognition software please call with any questions on syntax or grammar.
[2019-12-07] MEDS ORDERED: Potassium Chloride 20 MEQ in Premix Bag 1 BAG IV ONE (23:54)
[2019-12-07] MEDS ORDERED: Lactated Ringers 1,000 ML IV ONE (23:54)
[2019-12-07] MEDS ORDERED: Potassium Chloride 20 MEQ Tab.ER PO ONE (23:54)
[2019-12-08] MEDS ORDERED: Potassium Chloride 20 MEQ Tab.ER ONE (00:04)
[2019-12-08] MEDS ORDERED: Ondansetron 4 MG Tab.DIS ONE (00:04)
[2019-12-08] MEDS ORDERED: Potassium Chloride 100 ML ONE (00:05)
[2019-12-08] MEDS ORDERED: Ketorolac 30 MG/ML SDV IVPUSH ONE (03:23)
== END 2019-12-08 04:30 | disposition home or self-care (01) ==
LOC: JP.ED 22:37
DX: F12.920 Cannabis use, unspecified with intoxication, uncomplicated (principal); J45.909 Unspecified asthma, uncomplicated; G43.909 Migraine, unspecified, not intractable, without status migrainosus; F17.210 Nicotine dependence, cigarettes, uncomplicated; Z79.899 Other long term (current) drug therapy; Z90.49 Acquired absence of other specified parts of digestive tract
CPT/HCPCS: 36415; 80053; 80305; 80320; 81001; 85025; 96365; 96366; 96375; 99284; A9270; J1885; J2001; J2405; J3480; J7120; G0480